=== PATIENT | male | born 1970 | race Two or more races ===

== ENCOUNTER 2024-12-07 09:28 | Emergency (ER) | payer SELFPAY ==
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
--- NOTE | 2024-12-07 09:57 | PC.RT ---
pt came in already intubated in the field with a 8.0 ett we started cpr at 9:25 am and continued until now and the Er called the code. pt was in PEA.
--- NOTE | 2024-12-07 10:13 | ESOP_ITS ---
Procedures Procedure Date / Time 12/07/24 1013 Procedure Narrative Procedure Narrative: RT Chest Tube Procedure Note INDICATION: Hemothroax PROCEDURE MACHINE MAINTENANCE REPAIRER: Michael Lamas MD ATTENDING PHYSICIAN: Pablo Mortensen MD Consent was not obtained as it was CODE BLUE PROCEDURE SUMMARY: A time out performed during CODE BLUE, appropriate side was confirmed and marked. My hands were washed immediately prior to the procedure. I wore sterile gloves throughout the procedure. The patient was prepped and draped in a sterile manner using chlorhexidine scrub after the patient was in supine position. A 2 cm incision was then made parallel to the rib in the midaxillary line at the level of the 5th rib, in continuation with needle placed by EMS. The subcutaneous tissue superficial and superior to the rib was dissected bluntly to the level of the pleura. The pleura was then entered bluntly. The disruption in the parietal pleura was expanded bluntly and a finger was inserted and swept carefully in all directions. A 32 Somali chest tube was then inserted using my finger as a guide. The chest tube was inserted easily. The chest tube was sutured to the skin at the insertion site, and connected securely with sutures. No immediate complications were noted. - Michael Lamas M.D. PGY2
--- NOTE | 2024-12-07 10:18 | ESOP_ITS ---
Procedures Procedure Date / Time 12/07/24 1018 Procedure Narrative Procedure Narrative: LT Chest Tube Procedure Note INDICATION: Hemothroax PROCEDURE CERTIFIED RESPIRATORY THERAPIST: Michael Lamas MD ATTENDING PHYSICIAN: Pablo Mortensen MD Consent was not obtained as it was CODE BLUE PROCEDURE SUMMARY: A time out performed during CODE BLUE, appropriate side was confirmed and marked. My hands were washed immediately prior to the procedure. I wore sterile gloves throughout the procedure. The patient was prepped and draped in a sterile manner using chlorhexidine scrub after the patient was in supine position. A 2 cm incision was then made parallel to the rib in the midaxillary line at the level of the 5th rib, in continuation with needle placed by EMS. The subcutaneous tissue superficial and superior to the rib was dissected bluntly to the level of the pleura. The pleura was then entered bluntly. The disruption in the parietal pleura was expanded bluntly and a finger was inserted and swept carefully in all directions. A 32 Faroese chest tube was then inserted using my finger as a guide. The chest tube was inserted easily. The chest tube was sutured to the skin at the insertion site, and connected securely with sutures to a pleurovac. A sterile occlusive dressing was placed over the insertion site. No immediate complications were noted. - Michael Lamas M.D. PGY2
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
== END 2024-12-07 10:08 | disposition expired ==
PROVIDERS: Emergency Provider Emergency Medicine
DX: T14.90XA Injury, unspecified, initial encounter (principal); I46.8 Cardiac arrest due to other underlying condition; V44.6XXA Car passenger injured in collision with heavy transport vehicle or bus in traffic accident, initial encounter
CPT/HCPCS: 32551; 92950; 99285; C1729